=== PATIENT | male | born 1940 | race Caucasian/White ===

== ENCOUNTER 2023-08-10 08:36 | Emergency (ER) | payer OTHER, MEDICAID ==
[~2023-08-10] VITALS: Ht 180.3 cm; Wt 101.0 kg
[2023-08-10 09:10] VITALS: BP 137/61; PULSE 90; RESP 18; TEMP 98.7; O2SAT 95
[2023-08-10 09:35] LABS: Eosinophils # (auto) 0 10 ^3/uL (0-0.8); Lymphocytes # (auto) 0.8 10 ^3/uL (0.4-5.4); Red Cell Distribution Width 13.1 % (11.8-14.3)
[2023-08-10 09:39] LABS: Basophils # (auto) 0.1 10 ^3/uL (0-0.2); Basophils % (auto) 0.6 % (0.0-2.0); Hematocrit 48.2 % (41.0-53.0); Hemoglobin 16.5 g/dL (13.5-17.5); Lymphocytes % (auto) 7.6 % (10.0-50.0); Mean Corpuscular Hemoglobin 34.3 pg (28.0-32.0); Mean Corpuscular Hgb Conc. 34.1 g/dL (32.0-36.0); Mean Corpuscular Volume 100.5 fL (80.0-100.0); Monocytes % (auto) 9.7 % (0.0-12.0); Neutrophils # (auto) 8.7 10 ^3/uL (1.6-8.6); Neutrophils % (auto) 82.1 % (37.0-80.0); White Blood Cell 10.5 10^3/uL (4.4-10.8)
[2023-08-10 09:56] LABS: Alanine Aminotransferase 42 U/L (7-40); Albumin 4.9 g/dL (3.2-4.8); Alkaline Phosphatase 68 U/L (46-116); Anion Gap 9 (5-15); Aspartate Aminotransferase 34 U/L (13-40); BUN/Creatinine Ratio 12.5 (10.0-20.0); Bilirubin, Total 0.5 mg/dL (0.2-1.0); Blood Urea Nitrogen 16 mg/dL (9-23); Calcium 9.7 mg/dL (8.5-10.1); Carbon Dioxide 25 mmol/L (20-30); Chloride 103 mmol/L (98-107); Glucose 150 mg/dL (74-106); Potassium 4.4 mmol/L (3.5-5.1); Sodium 137 mmol/L (136-145); Total Protein 7.9 g/dL (5.7-8.2)
[2023-08-10] MEDS ORDERED: HYDROcodone-ACET 5/325MG TAB PO ONE (10:15)
[2023-08-10 10:28] LABS: Urine Bacteria NONE SEEN /hpf (None Seen); Urine Blood Negative /uL (Negative); Urine Clarity Clear (Clear); Urine Color Yellow (Yellow); Urine Mucus FEW (None Seen); Urine Protein, UAD TRACE (Negative); Urine WBC 1 /hpf (0 - 3); Urine pH 5.5 (5.0-8.0)
[2023-08-10] MEDS ORDERED: ONDANSETRON ODT 4 MG TAB PO ONE (10:45)
[2023-08-10] MEDS ORDERED: cefTRIAXone SOD 1,000 MG VL IM ONE (11:00)
[2023-08-10] MEDS ORDERED: AZIT500T66 PO (11:12)
[2023-08-10] MEDS ORDERED: PRED20TA2 PO (11:12)
== END 2023-08-10 11:11 | disposition home or self-care (01) ==
LOC: ER 08:36
DX: M47.896 Other spondylosis, lumbar region (principal); M54.16 Radiculopathy, lumbar region; N28.9 Disorder of kidney and ureter, unspecified; I71.9 Aortic aneurysm of unspecified site, without rupture; J03.90 Acute tonsillitis, unspecified; I10 Essential (primary) hypertension; E78.5 Hyperlipidemia, unspecified; Z98.890 Other specified postprocedural states; Z79.899 Other long term (current) drug therapy
CPT/HCPCS: 36415; 74176; 80053; 81001; 85025; 96372; 99285; J0696; Q0162

== ENCOUNTER 2023-08-23 09:05 | Inpatient (IN) | payer OTHER, MEDICAID ==
[2023-08-23] VITALS (16 sets, daily range): BP systolic 83–135; BP diastolic 58–95; PULSE 107–156; RESP 14–23; TEMP 97.5–99.3; O2SAT 90–99
[~2023-08-23] VITALS: Ht 180.3 cm; Wt 100.0 kg
[~2023-08-23 09:05] MED LIST: AZIT500T66 PO; PRED20TA2 PO
[2023-08-23] MEDS ORDERED: ASPirin 81 mg TAB PO ONE (09:45)
[2023-08-23] MEDS ORDERED: SODIUM CHLORIDE 0.9% 1,000 ML IV ONE (09:45)
[2023-08-23 10:22] LABS: Basophils # (auto) 0 10 ^3/uL (0-0.2); Basophils % (auto) 0.2 % (0.0-2.0); Eosinophils # (auto) 0.1 10 ^3/uL (0-0.8); Eosinophils % (auto) 0.8 % (0.0-7.0); Hematocrit 49.8 % (41.0-53.0); Hemoglobin 16.7 g/dL (13.5-17.5); INR 1.26 (0.9-1.15); Lymphocytes # (auto) 1.1 10 ^3/uL (0.4-5.4); Lymphocytes % (auto) 6.9 % (10.0-50.0); Mean Corpuscular Hemoglobin 33.3 pg (28.0-32.0); Mean Corpuscular Hgb Conc. 33.6 g/dL (32.0-36.0); Mean Corpuscular Volume 99.2 fL (80.0-100.0); Monocytes # (auto) 1.4 10 ^3/uL (0-1.3); Monocytes % (auto) 8.5 % (0.0-12.0); Neutrophils # (auto) 13.5 10 ^3/uL (1.6-8.6); Neutrophils % (auto) 83.6 % (37.0-80.0); Red Blood Cells 5.03 10^6/uL (4.5-5.90); Red Cell Distribution Width 12.7 % (11.8-14.3); White Blood Cell 16.1 10^3/uL (4.4-10.8)
[2023-08-23 10:51] LABS: Alanine Aminotransferase 62 U/L (7-40); Alkaline Phosphatase 68 U/L (46-116); Anion Gap 11 (5-15); Aspartate Aminotransferase 35 U/L (13-40); BUN/Creatinine Ratio 11.1 (10.0-20.0); Blood Urea Nitrogen 13 mg/dL (9-23); Calcium 9.2 mg/dL (8.5-10.1); Carbon Dioxide 20 mmol/L (20-30); Chloride 101 mmol/L (98-107); Glucose 158 mg/dL (74-106); Potassium 4.2 mmol/L (3.5-5.1); Sodium 132 mmol/L (136-145)
[2023-08-23 10:52] LABS: Bilirubin, Total 1.1 mg/dL (0.2-1.0); Total Protein 7.2 g/dL (5.7-8.2)
[2023-08-23 11:13] LABS: Lactic Acid w/Reflex 3.1 mmol/L (0.4-2.0)
[2023-08-23 11:22] LABS: Magnesium 2.1 mg/dL (1.6-2.6)
[2023-08-23] MEDS ORDERED: levoFLOXacin 500MG 100 ML IV ONE (11:45)
[2023-08-23] MEDS ORDERED: DIGOXIN (250MCG/ML) 2 ML AMPULE IV ONE (12:00)
[2023-08-23 12:27] LABS: COVID19 ANTIGEN SOFIA FIA NEGATIVE (NEGATIVE)
[2023-08-23] MEDS ORDERED: MORPHINE SULFATE INJ 2 MG/ml SYRG IV PRN (14:45)
[2023-08-23] MEDS ORDERED: SODIUM CHLORIDE 0.9% 1,000 ML IV SCH (14:45)
[2023-08-23] MEDS ORDERED: IPRATROPIUM BROM 0.5 MG/2.5ML INH SOL NEB PRN (14:45)
[2023-08-23] MEDS ORDERED: ALBUTEROL SULF 2.5 MG/0.5ML(0.5%) NEB SOLN NEB PRN (14:45)
[2023-08-23] MEDS ORDERED: NITROGLYCERIN 0.4 MG SL TAB SL PRN (14:45)
[2023-08-23] MEDS ORDERED: ONDANSETRON HCL 4 MG/2 ML VIAL IV PRN (14:45)
[2023-08-23 16:29] LABS: Rapid Strep A Screen-Throat Negative
[2023-08-23 16:38] LABS: Rapid Influenza A Negative (Negative); Rapid Influenza B Negative (Negative); Respiratory Syncytial Virus Ag Negative
[2023-08-23 17:03] LABS: Urine Bacteria NONE SEEN /hpf (None Seen); Urine Blood Negative /uL (Negative); Urine Clarity Clear (Clear); Urine Color Yellow (Yellow); Urine Mucus FEW (None Seen); Urine Protein, UAD 1+ (Negative); Urine Specific Gravity 1.028 (1.001-1.035); Urine WBC 3 /hpf (0 - 3); Urine pH 5.5 (5.0-8.0)
[2023-08-23] MEDS: SODIUM CHLORIDE 0.9% 1,000 ML IV SCH (18:13)
[2023-08-23] MEDS ORDERED: METOPROLOL TARTRATE 1MG/1ML-5ML VIAL IV PRN (19:45)
[2023-08-23] MEDS ORDERED: SODIUM CHLORIDE 0.9% 500 ML IV ONE (19:45)
[2023-08-23] MEDS: ENOXAPARIN SOD 100 MG/1 ML SYRINGE SC SCH (21:21)
[2023-08-23] MEDS: methylPREDNISolone SOD SUCC 40 MG/ML VL IV SCH (21:21)
[2023-08-23] MEDS: METOPROLOL TARTRATE 25 MG TAB PO SCH (21:22)
[2023-08-23] MEDS: PIPERACILLIN-TAZOB 3.375GM 100 ML IV SCH (21:22)
[2023-08-24] VITALS (17 sets, daily range): BP systolic 105–132; BP diastolic 65–79; PULSE 91–144; RESP 11–21; TEMP 97–98.3; O2SAT 93–98
[2023-08-24] MEDS: SODIUM CHLORIDE 0.9% 1,000 ML IV SCH (01:39)
[2023-08-24 05:37] LABS: Basophils # (auto) 0 10 ^3/uL (0-0.2); Basophils % (auto) 0.1 % (0.0-2.0); Eosinophils # (auto) 0 10 ^3/uL (0-0.8); Hematocrit 41.1 % (41.0-53.0); Hemoglobin 14.1 g/dL (13.5-17.5); Lymphocytes # (auto) 0.5 10 ^3/uL (0.4-5.4); Mean Corpuscular Hemoglobin 33.8 pg (28.0-32.0); Mean Corpuscular Hgb Conc. 34.4 g/dL (32.0-36.0); Mean Corpuscular Volume 98.4 fL (80.0-100.0); Monocytes # (auto) 0.3 10 ^3/uL (0-1.3); Monocytes % (auto) 2.9 % (0.0-12.0); Neutrophils # (auto) 8.3 10 ^3/uL (1.6-8.6); Red Blood Cells 4.17 10^6/uL (4.5-5.90); Red Cell Distribution Width 12.6 % (11.8-14.3)
[2023-08-24 05:56] LABS: Anion Gap 10 (5-15); Carbon Dioxide 21 mmol/L (20-30); Chloride 104 mmol/L (98-107); Potassium 4.9 mmol/L (3.5-5.1); Sodium 135 mmol/L (136-145)
[2023-08-24 05:58] LABS: Calcium 8.3 mg/dL (8.5-10.1)
[2023-08-24 06:02] LABS: Glucose 210 mg/dL (74-106)
[2023-08-24 06:03] LABS: BUN/Creatinine Ratio 15.2 (10.0-20.0); Blood Urea Nitrogen 15 mg/dL (9-23)
[2023-08-24] MEDS: PIPERACILLIN-TAZOB 3.375GM 100 ML IV SCH ×3 (06:34→22:00)
[2023-08-24] MEDS ORDERED: AMIODARONE BOLUS KIT 100 ML IV ONE ×2 (06:45→13:15)
[2023-08-24] MEDS ORDERED: AMIODARONE 450mg/250ml AE 250 ML IV SCH ×2 (07:00→13:00)
[2023-08-24] MEDS: ENOXAPARIN SOD 100 MG/1 ML SYRINGE SC SCH (08:46)
[2023-08-24] MEDS: methylPREDNISolone SOD SUCC 40 MG/ML VL IV SCH ×2 (08:47→22:00)
[2023-08-24] MEDS: FAMOTIDINE 20 MG TAB PO SCH (08:47)
[2023-08-24] MEDS: METOPROLOL TARTRATE 25 MG TAB PO SCH ×2 (08:47→22:00)
[2023-08-24] MEDS ORDERED: ENOXAPARIN SOD 40 MG/0.4 ML SYRINGE SC SCH (10:00)
[2023-08-24] MEDS ORDERED: AZITHROMYCIN 500MG/ 250ML 250 ML IV ONE (11:00)
[2023-08-24 20:49] LABS: Hematocrit 42.9 % (41.0-53.0); Hemoglobin 14.5 g/dL (13.5-17.5)
[2023-08-24] MEDS: AMIODARONE HCL 200 MG TAB PO SCH (23:41)
[2023-08-25] VITALS (18 sets, daily range): BP systolic 87–133; BP diastolic 44–86; PULSE 82–133; RESP 10–21; TEMP 97.6–98; O2SAT 85–98
[2023-08-25] MEDS: PIPERACILLIN-TAZOB 3.375GM 100 ML IV SCH ×3 (06:00→22:16)
[2023-08-25] MEDS: AMIODARONE HCL 200 MG TAB PO SCH ×2 (08:18→22:19)
[2023-08-25] MEDS: methylPREDNISolone SOD SUCC 40 MG/ML VL IV SCH ×2 (08:18→22:18)
[2023-08-25] MEDS: FAMOTIDINE 20 MG TAB PO SCH (08:19)
[2023-08-25] MEDS ORDERED: AZITHROMYCIN 500MG/ 250ML 250 ML IV SCH (10:00)
[2023-08-25] MEDS: APIXABAN 5 MG TAB PO SCH ×2 (14:56→22:16)
[2023-08-25] MEDS: METOPROLOL TARTRATE 50 MG TAB PO SCH (22:17)
[2023-08-26] VITALS (13 sets, daily range): BP systolic 99–115; BP diastolic 55–76; PULSE 77–101; RESP 11–21; TEMP 97.6–98.3; O2SAT 94–99
[2023-08-26 05:34] LABS: Basophils # (auto) 0 10 ^3/uL (0-0.2); Basophils % (auto) 0.1 % (0.0-2.0); Eosinophils # (auto) 0 10 ^3/uL (0-0.8); Hemoglobin 13.3 g/dL (13.5-17.5); Lymphocytes # (auto) 0.6 10 ^3/uL (0.4-5.4); Lymphocytes % (auto) 3.9 % (10.0-50.0); Mean Corpuscular Hemoglobin 33.8 pg (28.0-32.0); Mean Corpuscular Hgb Conc. 34.1 g/dL (32.0-36.0); Monocytes # (auto) 0.5 10 ^3/uL (0-1.3); Monocytes % (auto) 3.6 % (0.0-12.0); Neutrophils # (auto) 13.2 10 ^3/uL (1.6-8.6); Neutrophils % (auto) 92.4 % (37.0-80.0); Red Blood Cells 3.93 10^6/uL (4.5-5.90); Red Cell Distribution Width 12.9 % (11.8-14.3); White Blood Cell 14.3 10^3/uL (4.4-10.8)
[2023-08-26 05:40] LABS: Chloride 103 mmol/L (98-107)
[2023-08-26 05:41] LABS: Calcium 8.7 mg/dL (8.5-10.1)
[2023-08-26 05:46] LABS: BUN/Creatinine Ratio 18.2 (10.0-20.0); Blood Urea Nitrogen 18 mg/dL (9-23); Glucose 215 mg/dL (74-106)
[2023-08-26 05:50] LABS: Carbon Dioxide 23 mmol/L (20-30)
[2023-08-26] MEDS: PIPERACILLIN-TAZOB 3.375GM 100 ML IV SCH ×3 (06:00→22:46)
[2023-08-26 08:25] LABS: Anion Gap 7 (5-15); Sodium 133 mmol/L (136-145)
[2023-08-26] MEDS: methylPREDNISolone SOD SUCC 40 MG/ML VL IV SCH (08:39)
[2023-08-26] MEDS: AMIODARONE HCL 200 MG TAB PO SCH ×2 (08:39→22:45)
[2023-08-26] MEDS: METOPROLOL TARTRATE 50 MG TAB PO SCH ×2 (08:40→22:00)
[2023-08-26] MEDS: APIXABAN 5 MG TAB PO SCH ×2 (08:40→22:45)
[2023-08-26] MEDS: FAMOTIDINE 20 MG TAB PO SCH (08:41)
[2023-08-26] MEDS ORDERED: AMIODARONE BOLUS KIT 100 ML IV ONE ×2 (13:15)
[2023-08-26] MEDS: TEMAZEPAM 15 MG CAP PO PRN (22:45)
[2023-08-27] VITALS (12 sets, daily range): BP systolic 101–120; BP diastolic 47–75; PULSE 78–97; RESP 9–17; TEMP 97.9–98.7; O2SAT 94–98
[2023-08-27 05:53] LABS: Basophils # (auto) 0 10 ^3/uL (0-0.2); Basophils % (auto) 0.1 % (0.0-2.0); Eosinophils # (auto) 0 10 ^3/uL (0-0.8); Eosinophils % (auto) 0.1 % (0.0-7.0); Hematocrit 38.5 % (41.0-53.0); Hemoglobin 13.1 g/dL (13.5-17.5); Lymphocytes # (auto) 1.2 10 ^3/uL (0.4-5.4); Lymphocytes % (auto) 7.9 % (10.0-50.0); Mean Corpuscular Hemoglobin 33.6 pg (28.0-32.0); Mean Corpuscular Hgb Conc. 33.9 g/dL (32.0-36.0); Monocytes # (auto) 1.4 10 ^3/uL (0-1.3); Monocytes % (auto) 9.3 % (0.0-12.0); Neutrophils # (auto) 12.7 10 ^3/uL (1.6-8.6); Neutrophils % (auto) 82.6 % (37.0-80.0); Red Blood Cells 3.89 10^6/uL (4.5-5.90); Red Cell Distribution Width 12.7 % (11.8-14.3); White Blood Cell 15.4 10^3/uL (4.4-10.8)
[2023-08-27] MEDS: PIPERACILLIN-TAZOB 3.375GM 100 ML IV SCH ×3 (06:00→22:34)
[2023-08-27 06:01] LABS: Chloride 102 mmol/L (98-107); Potassium 4.6 mmol/L (3.5-5.1); Sodium 137 mmol/L (136-145)
[2023-08-27 06:02] LABS: Anion Gap 6 (5-15); Carbon Dioxide 29 mmol/L (20-30)
[2023-08-27 06:03] LABS: Calcium 8.6 mg/dL (8.5-10.1)
[2023-08-27 06:07] LABS: Glucose 203 mg/dL (74-106)
[2023-08-27 06:08] LABS: BUN/Creatinine Ratio 14.9 (10.0-20.0); Blood Urea Nitrogen 17 mg/dL (9-23)
[2023-08-27] MEDS: FAMOTIDINE 20 MG TAB PO SCH (10:00)
[2023-08-27] MEDS: AMIODARONE HCL 200 MG TAB PO SCH ×2 (10:00→22:35)
[2023-08-27] MEDS: METOPROLOL TARTRATE 50 MG TAB PO SCH ×2 (10:00→22:36)
[2023-08-27] MEDS: APIXABAN 5 MG TAB PO SCH ×2 (10:00→22:36)
[2023-08-27] MEDS: SALINE 0.65 % NASAL SPRAY 45ML BOTTLE EACHNOSTRI SCH (22:34)
[2023-08-27] MEDS: TEMAZEPAM 15 MG CAP PO PRN (22:36)
[2023-08-28] VITALS (9 sets, daily range): BP systolic 99–115; BP diastolic 61–75; PULSE 64–89; RESP 11–18; TEMP 98–98.7; O2SAT 93–100
[2023-08-28] MEDS: PIPERACILLIN-TAZOB 3.375GM 100 ML IV SCH (06:00)
[2023-08-28] MEDS: SALINE 0.65 % NASAL SPRAY 45ML BOTTLE EACHNOSTRI SCH (06:00)
[2023-08-28] MEDS: APIXABAN 5 MG TAB PO SCH (08:53)
[2023-08-28] MEDS: AMIODARONE HCL 200 MG TAB PO SCH (08:54)
[2023-08-28] MEDS: FAMOTIDINE 20 MG TAB PO SCH (08:54)
[2023-08-28] MEDS: METOPROLOL TARTRATE 50 MG TAB PO SCH (08:54)
[2023-08-28] MEDS ORDERED: APIX5TAB PO (12:09)
[2023-08-28] MEDS ORDERED: ALBU108A5 IN (12:09)
[2023-08-28] MEDS ORDERED: DOXY-448 PO (12:09)
[2023-08-28] MEDS ORDERED: MET50T PO (12:09)
[2023-08-28] MEDS ORDERED: AMIO200T33 PO ×3 (12:09→17:02)
[2023-08-28] MEDS ORDERED: MAGNESIUM OXIDE 400 MG TAB PO ONE (16:00)
== END 2023-08-28 17:00 | disposition home or self-care (01) | DRG 177 ==
LOC: ER 09:05 → TELE 14:43 → DOU IN ICU 19:18 → TELE-EAST 08-28 08:15
PROVIDERS: ADMIT Hospitalist; ATTEND Hospitalist
DX: U07.1 COVID-19 (principal); J12.82 Pneumonia due to coronavirus disease 2019; J96.01 Acute respiratory failure with hypoxia; E87.20 Acidosis, unspecified; J98.11 Atelectasis; I10 Essential (primary) hypertension; I48.91 Unspecified atrial fibrillation; E78.5 Hyperlipidemia, unspecified; Z79.01 Long term (current) use of anticoagulants
CPT/HCPCS: 36415; 71045; 71250; 74176; 80048; 80053; 81001; 82270; 83605; 83735; 83880; 84484; 85014; 85018; 85025; 85610; 85730; 87040; 87070; 87081; 87426; 87804; 87807; 87880; 93005; 93306; 94640; 99291; G0378; J1956; J2543

== ENCOUNTER 2024-01-09 10:17 | Day surgery (SDC) | payer OTHER, MEDICAID ==
[~2024-01-09] VITALS: Ht 180.3 cm; Wt 101.6 kg
[~2024-01-09 10:17] MED LIST changes: +ACET500T58 PO; +ALBU108A5 IN; +AMIO200T33 PO; +APIX5TAB PO; -AZIT500T66 PO; +FINA5TAB4 PO; +FLUT1AER17 IN; +METO25TA5 PO; +MULT-1018 PO; -PRED20TA2 PO; +SENN-62 PO; +SIMV20TA20 PO
[2024-01-09] MEDS ORDERED: MIDAZOLAM HCL 2MG/2ML 2ml VIAL (1mg/ml) IV ONE (10:45)
[2024-01-09] MEDS ORDERED: fentaNYL CITRATE 100 MCG/2 ML VL IV ONE (10:45)
[2024-01-09] MEDS ORDERED: LIDOCAINE VISCOUS 2% 15ML UD MT ONE (10:45)
[2024-01-09] MEDS ORDERED: MIDAZOLAM HCL 2MG/2ML 2ml VIAL (1mg/ml) ONE ×2 (12:44→13:12)
[2024-01-09] MEDS ORDERED: ONDANSETRON HCL 4 MG/2 ML VIAL ONE (13:05)
[2024-01-09] MEDS ORDERED: ONDANSETRON HCL 4 MG/2 ML VIAL IV ONE (13:06)
== END 2024-01-09 15:03 | disposition home or self-care (01) ==
LOC: CATH 10:17
PROVIDERS: ATTEND Internal Medicine
DX: I48.91 Unspecified atrial fibrillation (principal); I08.1 Rheumatic disorders of both mitral and tricuspid valves; J44.9 Chronic obstructive pulmonary disease, unspecified; Z86.16 Personal history of COVID-19; Z79.01 Long term (current) use of anticoagulants; Z87.891 Personal history of nicotine dependence; Z80.8 Family history of malignant neoplasm of other organs or systems; Z79.899 Other long term (current) drug therapy; Z98.890 Other specified postprocedural states
CPT/HCPCS: 92960; 93005; 93312; J2250; J2405; J3010; 99152

== ENCOUNTER 2024-04-21 10:34 | Inpatient (IN) | payer OTHER, MEDICAID ==
[~2024-04-21] VITALS: Ht 175.3 cm; Wt 100.3 kg
[2024-04-21 12:31] LABS: Basophils # (auto) 0.1 10 ^3/uL (0-0.2); Eosinophils # (auto) 0.1 10 ^3/uL (0-0.8); Mean Corpuscular Hgb Conc. 34.4 g/dL (32.0-36.0); Mean Corpuscular Volume 100.2 fL (80.0-100.0); Monocytes # (auto) 1.4 10 ^3/uL (0-1.3); White Blood Cell 12.1 10^3/uL (4.4-10.8)
[2024-04-21 12:32] LABS: Basophils % (auto) 0.8 % (0.0-2.0); Eosinophils % (auto) 0.6 % (0.0-7.0); Hematocrit 41.8 % (41.0-53.0); Hemoglobin 14.4 g/dL (13.5-17.5); Lymphocytes # (auto) 1.5 10 ^3/uL (0.4-5.4); Lymphocytes % (auto) 12.6 % (10.0-50.0); Mean Corpuscular Hemoglobin 34.4 pg (28.0-32.0); Monocytes % (auto) 11.7 % (0.0-12.0); Neutrophils % (auto) 74.3 % (37.0-80.0); Red Blood Cells 4.17 10^6/uL (4.5-5.90); Red Cell Distribution Width 14.4 % (11.8-14.3)
[2024-04-21 12:39] LABS: Chloride 104 mmol/L (98-107); Potassium 4.3 mmol/L (3.5-5.1); Sodium 138 mmol/L (136-145)
[2024-04-21 12:40] LABS: Anion Gap 5 (5-15); Calcium 9.5 mg/dL (8.7-10.4); Carbon Dioxide 29 mmol/L (20-30)
[2024-04-21 12:45] LABS: BUN/Creatinine Ratio 15.4 (10.0-20.0); Blood Urea Nitrogen 19 mg/dL (9-23); Glucose 113 mg/dL (74-106)
[2024-04-21 13:19] VITALS: PULSE 60; RESP 16; O2SAT 90
[2024-04-21] MEDS ORDERED: MORPHINE SULFATE INJ 2 MG/ml SYRG IV PRN ×2 (14:00)
[2024-04-21] MEDS ORDERED: ONDANSETRON HCL 4 MG/2 ML VIAL IV PRN (14:00)
[2024-04-21] MEDS ORDERED: ACETAMINOPHEN 325 MG TAB PO PRN (14:00)
[2024-04-21] MEDS ORDERED: HYDROcodone-ACET 5/325MG TAB PO PRN (14:00)
[2024-04-21] MEDS ORDERED: NITROGLYCERIN 0.4 MG SL TAB SL PRN (14:00)
[2024-04-21 20:07] VITALS: O2SAT 95
[2024-04-21] MEDS: APIXABAN 5 MG TAB PO SCH (22:00)
[2024-04-21 22:10] VITALS: BP 108/48; PULSE 66; RESP 17; TEMP 98.4; O2SAT 95
[2024-04-21 23:38] VITALS: RESP 18
[2024-04-22] VITALS (9 sets, daily range): BP systolic 110–149; BP diastolic 62–73; PULSE 52–70; RESP 18–20; TEMP 98–98.8; O2SAT 92–98
[2024-04-22] MEDS ORDERED: LISI10TA34 PO (17:27)
== END 2024-04-22 21:51 | disposition home health service (06) | DRG 913 ==
LOC: ER 10:34 → TELE 13:58 → TELE-WESTW 22:10
PROVIDERS: ADMIT Internal Medicine; ATTEND Internal Medicine
DX: S09.8XXA Other specified injuries of head, initial encounter (principal); I21.A1 Myocardial infarction type 2; I48.20 Chronic atrial fibrillation, unspecified; J44.9 Chronic obstructive pulmonary disease, unspecified; G90.8 Other disorders of autonomic nervous system; N18.9 Chronic kidney disease, unspecified; R79.89 Other specified abnormal findings of blood chemistry; I25.10 Atherosclerotic heart disease of native coronary artery without angina pectoris; I12.9 Hypertensive chronic kidney disease with stage 1 through stage 4 chronic kidney disease, or unspecified chronic kidney disease; S00.03XA Contusion of scalp, initial encounter; E78.5 Hyperlipidemia, unspecified; I44.0 Atrioventricular block, first degree; Z79.01 Long term (current) use of anticoagulants; Z87.891 Personal history of nicotine dependence; W18.39XA Other fall on same level, initial encounter; Y93.89 Activity, other specified; Y92.89 Other specified places as the place of occurrence of the external cause; Y99.8 Other external cause status
CPT/HCPCS: 36415; 70450; 72125; 73090; 80048; 84484; 85025; 93005; 93306; 97163; G0378